=== PATIENT | male | born 1990 | race Caucasian/White ===

== ENCOUNTER 2024-10-14 12:47 | Emergency (ER) | payer SELFPAY ==
[2024-10-14 12:50] VITALS: BP 157/92; PULSE 75; RESP 16; TEMP 36.6; O2SAT 99
--- NOTE | 2024-10-14 13:11 | ED_ITS ---
HPI - Abdominal Pain 2 General: Chief Complaint: Abdominal Pain Stated Complaint: vomitting Time Seen by Provider: 10/14/24 12:59 Source: patient Mode of arrival: ambulatory Limitations: no limitations History of Present Illness: Patient is a 34-year-old male presents to ED today for concerns of diffuse abdominal pain, nausea and vomiting. He states symptoms started Saturday evening. He did eat [employer] before he went to bed but states he had steak-well done. He states since then he has continued to have severe diffuse abdominal pain that he describes as a knot in the middle of his abdomen. He has not noticed any changes in bowel movements but does not think he has had one since Saturday. He does report multiple episodes of vomiting. States he is not able to eat secondary to symptoms. He has not been running fevers. Has not noticed any yellowing to his skin or eyes. He does reported decreased urine output and dark urine and states sometimes it does burn. No penile discharge or concern for STDs. He is monogamous with his of 12 years. Patient does use marijuana frequently-only at night to help him sleep but has been doing so for years. MD elicited complaint: abdominal pain Pertinent past history: none Onset (ago): day(s) Pain Consistency: constant Location: Diffuse Severity: severe Quality: cramping and sharp Radiation: none Migration to: no migration Exacerbating factors: eating Relieving factors: nothing Associated Symptoms: Reports chills, GI cramping, dysuria, nausea and vomiting; Denies constipation, diarrhea, fever(s), hematochezia, hematuria, hematemesis, melena and syncope Related Data Home Medications ?Medication ?Instructions ?Recorded ?Confirmed ibuprofen 200 mg tablet (Advil) 800 mg PO Q6H PRN Feve r Or Pain 10/14/24 10/14/24 Previous Rx's ?Medication ?Instructions ?Recorded ciprofloxacin HCl 500 mg tablet 500 mg PO Q12H #14 tab s 10/14/24 (Cipro) metronidazole 500 mg tablet 500 mg PO BID 7 days #14 t abs 10/14/24 ondansetron 4 mg disintegrating 4 mg PO Q8H PRN nausea and 10/14/24 tablet vomiting #14 tabs prednisone 10 mg tablet 10 mg PO DAILY 7 days #27 ta bs 10/14/24 Allergies Allergy/AdvReac Type Severity Reaction Status Date / Time No Known Allergies Allergy Unverified 06/23/24 07:23 Review of Systems 2 Const: Reports: chills; Denies: fever(s), body aches, fatigue or malaise ENMT: Denies: throat pain or odynophagia Card: Denies: chest pain, edema, lightheadedness, syncope or pre-syncope Resp: Denies: dyspnea, pain on inspiration or chest congestion GI: Reports: abdominal pain, nausea, vomiting and GI cramping; Denies: hematemesis, diarrhea, constipation, hematochezia or melena : Reports: dysuria, urinary frequency and other (decreased urine output); Denies: flank pain, difficulty urinating, urinary urgency, urinary hesitancy or hematuria Musc: Denies: neck pain, back pain, extremity pain, extremity swelling, joint pain, joint swelling or joint redness Skin/Breast: Denies: rash Neuro: Denies: headache(s), numbness in extremities, weakness in extremities, sensory changes, difficulty walking or confusion PFSH ED 2 PFSH: Social History Smoking and tobacco/nicotine status: never used tobacco/nicotine Physical Exam 2 Const: COMMON NORMALS: no acute distress, average body habitus, patient oriented x3, no limitations, healthy appearing, alert and well nourished G ENERAL APPEARANCE: cooperative ORIENTATION/CONSCIOUSNESS: Yes awake, Yes oriented to person, Yes oriented to place and Yes oriented to time HENMT: COMMON NORMALS: normocephalic and atraumatic HEAD & SCALP: normal to inspection, normocephalic and atraumatic FACE & SINUS: normal facial exam Eye: COMMON NORMALS: no scleral icterus Neck/C-Spine: COMMON NORMALS: full ROM, no lymphadenopathy, supple and no meningeal signs Chest: COMMONS NORMALS: normal inspection of the chest Resp: COMMON NORMALS: normal respiratory effort and clear to auscultation bilaterally AUSCULTATION: clear to auscultation bilaterally Cardio: COMMON NORMALS: regular rate and regular rhythm RATE: regular rate RHYTHM: regular rhythm GI: COMMON NORMALS: Normal to inspection, nondistended, normoactive bowel sounds present, Soft to palpation, No hepatosplenomegaly present and no masses INSPECTION: Yes normal to inspection AUSCULTATION: Yes normoactive bowel sounds PALPATION: Yes Soft to palpation, Yes Tenderness to palpation present (GI) (diffusely), Yes Guarding due to palpation present (GI), No Rigid due to palpation and Yes No hepatosplenomegaly present : COMMON NORMALS: Yes no CVA tenderness BLADDER/KIDNEY EXAM: Yes no CVA tenderness Back/Pelvis: COMMON NORMALS: no CVA tenderness and thoracic and lumbar spine normal to inspection Extremity: COMMON NORMALS: normal to inspection GENERAL: Yes normal exam except as noted Neuro: ANASTACIA COMA SCALE: document GCS findings [place] coma scale eye opening: Spontaneous [place] coma scale verbal response: Orientated Anastacia coma scale motor response: Obey commands Anastacia coma scale total score: 15 COMMON NORMALS: patient oriented x3, moves all extremities, no focal motor deficits, no sensory deficits noted and gait normal SENSORIUM/ORIENTATION: Yes alert, Yes oriented to person, Yes oriented to place and Yes oriented to time MENINGEAL SIGNS: Yes no meningeal signs Skin: COMMON NORMALS: no rashes or lesions noted GENERAL SKIN EXAM: no rashes or lesions noted Course 2 Vital Signs: Vital signs: Vital Signs Temperature 97.9 F 10/14/24 12:50 Pulse Rate 65 10/14/24 14:23 Respiratory Rate 16 10/14/24 12:50 Blood Pressure 157/92 10/14/24 12:50 Pulse Oximetry 94 10/14/24 14:23 Oxygen Delivery Me thod Room Air 10/14/24 14:23 MDM - Abdominal Pain Medical Decision Making Patient's pain and nausea are improved after medications. His blood work overall is nonactionable. Mild white count of 14.2. Chemistry is overall unremarkable. UA is clear. CT scan showing findings suspicious for a right colon/transverse colon infectious or inflammatory colitis. Remainder of CT scan is unremarkable. Patient will be treated with anti-inflammatory/antibiotics and recommend follow-up with primary care early next week for re-evaluation. Return ED precautions discussed. Another etiology for his symptoms could be his habitual marijuana use. Differential Diagnosis Likely abdominal pain Medical Records I reviewed the patient's medical records. Lab Data I reviewed the patient's lab results. 10/14/24 13:16 10/14/24 13:16 Labs/Radiology: Radiology Impressions Abdomen/Pelvis CT 10/14/24 13:18 IMPRESSION: 1. Findings suspicious for RIGHT colon and transverse colon infectious or inflammatory colitis described above. Less prominent involvement of the descending colon and sigmoid colon. 2. Normal appendix. 3. Fatty liver. 4. Evidence of gastritis and duodenitis. 5. No other acute findings. Laboratory Results WBC 14.20 10^3/uL (3.29-11.43) H 10/14/24 13:16 RBC 5.43 10^6/uL (3.85-5.65) 10/14/24 13:16 Hgb 16.30 g/dL (11.27-16.99) 10/14/24 13:16 Hct 47.1 % (37-53) 10/14/24 13:16 MCV 86.7 fl (82-101) 10/14/24 13:16 MCH 30.0 pg (27-33) 10/14/24 13:16 MCHC 34.6 g/dL (30-55) 10/14/24 13:16 RDW 12.1 % (12.1-15.1) 10/14/24 13:16 Plt Count 263 10^3/cmm (157-399) 10/14/24 13:16 MPV 12.4 fL (7.4-10.4) H 10/14/24 13:16 Neut % (Auto) 80.5 % 10/14/24 13:16 Lymph % (Auto) 14.2 % 10/14/24 13:16 Rolette % (Auto) 4.6 % 10/14/24 13:16 Eos % (Auto) 0.1 % 10/14/24 13:16 Baso % (Auto) 0.1 % 10/14/24 13:16 Neut # (Auto) 11.43 10^3/uL (1.8-7.7) H 10/14/24 13:16 Lymph # (Auto) 2.0 10^3/uL (0.8-4.8) 10/14/24 13:16 Rolette # (Auto) 0.7 10^3/uL (0.2-0.9) 10/14/24 13:16 Eos # (Auto) 0.0 10^3/uL (0.0-0.8) 10/14/24 13:16 Baso # (Auto) 0.0 10^3/uL (0.0-0.1) 10/14/24 13:16 Nucleated RBC % (auto) 0 % 10/14/24 13:16 Nucleated RBCs # 0.0 /100WBC 10/14/24 13:16 Sodium 137 mmol/L (136-145) 10/14/24 13:16 Potassium 3.5 mmol/L (3.5-5.1) 10/14/24 13:16 Chloride 99 mmol/L (98-107) 10/14/24 13:16 Carbon Dioxide 23 mmol/L (22-29) 10/14/24 13:16 Anion Gap 18.5 (5-19) 10/14/24 13:16 BUN 12 mg/dL (6-20) 10/14/24 13:16 Creatinine 1.0 mg/dL (0.7-1.2) 10/14/24 13:16 GFR Calculation 85.5 mL/min (90-130) L 10/14/24 13:16 Glucose 104 mg/dL (65-115) 10/14/24 13:16 Calculated Osmolality 284 mOsm/kg (285-295) L 10/14/24 13:16 Calcium 9.5 mg/dL (8.5-10.5) 10/14/24 13:16 Total Bilirubin 0.8 mg/dL (0.15-1.2) 10/14/24 13:16 AST 19 U/L (0-40) 10/14/24 13:16 ALT 14 U/L (0-41) 10/14/24 13:16 Alkaline Phosphatase 87 U/L (40-130) 10/14/24 13:16 Creatine Kinase 107 U/L (39-308) 10/14/24 13:16 Total Protein 8.4 g/dL (6.6-8.7) 10/14/24 13:16 Albumin 4.8 g/dL (3.5-5.2) 10/14/24 13:16 Globulin 3.6 g/dL (1.3-4.6) 10/14/24 13:16 Lipase 54 U/L (13-60) 10/14/24 13:16 Urine Color Yellow (Yellow) 10/14/24 15:52 Urine Appearance Clear (CLEAR) 10/14/24 15:52 Urine pH 7.5 (5-7) 10/14/24 15:52 Ur Specific Reyn[place] 1.061 (1.005-1.030) H 10/14/24 15:52 Urine Protein Negative (Negative) 10/14/24 15:52 Urine Glucose (UA) Negative (Normal) 10/14/24 15:52 Urine Ketones Trace (Negative) 10/14/24 15:52 Urine Blood Non-haemolysed trace (Negative) 10/14/24 15:52 Urine Nitrate Negative (Negative) 10/14/24 15:52 Urine Bilirubin Negative (Negative) 10/14/24 15:52 Urine Urobilinogen 0.2 mg/dL (Negative) 10/14/24 15:52 Ur Leukocyte Esterase Negative (Negative) 10/14/24 15:52 Urine RBC 0-2 /hpf (0-2) 10/14/24 15:52 Urine WBC 0-5 /hpf (0-5) 10/14/24 15:52 Ur Squamous Epith Cells 0-5 /hpf (0-5) 10/14/24 15:52 Amorphous Sediment Not Reportable 10/14/24 15:52 Urine Bacteria None seen /hpf (NONE) 10/14/24 15:52 Hyaline Casts 0-4 /lpf H 10/14/24 15:52 All radiology interpretation(s) finalized by discharge Discharge Plan Discharge Patient Disposition: Home Clinical Impression: Colitis Condition: Stable Prescriptions: New prednisone 10 mg tablet 10 mg PO DAILY 7 Days Qty: 27 0RF Rx Instructions: 6 tabs on days 1-2, 5 tabs on days 3, 4 tabs on day 4, 3 tabs on day 5, 2 tabs on day 6, 1 tab on day 7 metronidazole 500 mg tablet 500 mg PO BID 7 Days Qty: 14 0RF ciprofloxacin HCl [Cipro] 500 mg tablet 500 mg PO Q12H Qty: 14 0RF ondansetron 4 mg tablet,disintegrating 4 mg PO Q8H PRN (Reason: nausea and vomiting) Qty: 14 0RF No Action ibuprofen [Advil] 200 mg Tablet 800 mg PO Q6H PRN (Reason: Fever Or Pain) Discharge Orders: Discharge ED (Routine); Ordered 10/14/24 Ordered By: Luly Lozano Referrals: Eric Ventura MD [Primary Care Provider, Family Practice] Patient Instructions: Colitis (ED) Activity Restrictions/Additional Instructions: As we discussed, I would like you to do a bland liquid diet over the next 48 hours and slowly advance as tolerated. Take your medications as directed. I would like you to follow-up with primary care early next week for reevaluation. You need to return to the emergency department for onset of worsening abdominal pain, fevers, continuing to vomit, bloody diarrhea, generally feeling worse or unwell, or any other concerns you may have. I hope you begin to feel better soon. Print Language: Burkinan Coding Level of Care Code ED [employer] for Yoandy العلي
--- NOTE | 2024-10-14 13:18 | CT_ITS ---
WS: [id number] CT ABDOMEN PELVIS TECHNIQUE: Contrast-enhanced CT of the abdomen and pelvis with coronal and sagittal reformatted images. CLINICAL INFORMATION: abdominal pain, N/V COMPARISON: None. DLP: 448.[address] scans at [facility] use at least one of these dose optimization techniques: automated exposure control; mA and/or kV adjustment per patient size (includes targeted exams where dose is matched to clinical indication); or iterative reconstruction. FINDINGS: Mild diffuse thickening with mucosal enhancement involving the colon more prominent in the RIGHT colon and transverse colon suspicious for infectious or inflammatory colitis. Less prominent involvement of the descending colon. Sigmoid colon is more normal appearance. No evidence of small or large bowel obstruction. Normal appendix in the RIGHT lower quadrant. Lung bases are well aerated. Fatty liver. Normal portal vein and splenic vein. Evidence of gastritis and duodenitis. Adrenal glands are normal. Normal renal parenchymal enhancement. No hydronephrosis. Normal pancreatic parenchymal enhancement. Normal caliber abdominal aorta. Tiny fat-containing umbilical hernia. CT/CT abdomen pelvis w con* [id number] IMPRESSION: 1. Findings suspicious for RIGHT colon and transverse colon infectious or infl ammatory colitis described above. Less prominent involvement of the descending colon and sigmoid colon. 2. Normal appendix. 3. Fatty liver. 4. Evidence of gastritis and duodenitis. 5. No other acute findings.
[2024-10-14] MEDS: morphine 4 mg/mL SDV 1 mL IVP (13:32)
[2024-10-14] MEDS: ondansetron 2 mg/ML SDV 2 mL 4 MG IVP (13:33)
[2024-10-14] MEDS: sodium chloride 0.9% 1,000 ML 999 ML IV (13:33)
[2024-10-14 13:42] LABS: Basophils % 0.1 %; Eosinophils % 0.1 %; Hematocrit 47.1 % (37-53); Lymphocytes % 14.2 %; Mean Corpuscular HGB Conc 34.6 g/dL (30-55); Mean Corpuscular Volume 86.7 fl (82-101); Mean Platelet Volume 12.4 fL (7.4-10.4); Monocytes # 0.7 10^3/uL (0.2-0.9); Monocytes % 4.6 %; Neutrophils # 11.43 10^3/uL (1.8-7.7); Neutrophils % 80.5 %; Nucleated Red Blood Cells % 0 %; Platelet Count 263 10^3/cmm (157-399); Red Blood Count 5.43 10^6/uL (3.85-5.65); Red Cell Distribution Width 12.1 % (12.1-15.1)
--- NOTE | 2024-10-14 13:44 | ECG_ITS ---
[facility] [place] [facility] Date: 2024-10-14 Pat Name: Demario Curtis Department: Room: Gender: Male Slurry Man: : 1990 Requested By: Luly Lozano Order Number: [id number] Kait MD: MAGALYS PILLAI Measurements Intervals [place] Rate: 47 P: 56 IA: 155 QRS: 95 QRSD: 106 T: 67 QT: 426 QTc: 378 Interpretive Statements SINUS BRADYCARDIA BORDERLINE RIGHT AXIS DEVIATION [QRS AXIS > 90] Compared to ECG 03/14/2016 22:17:11 Sinus rhythm no longer present Early repolarization no longer present Electronically Signed On 10-14-2024 23:08:58 CDT by MAGALYS PILLAI [email or web address]
[2024-10-14 14:03] LABS: Alanine Aminotransferase 14 U/L (0-41); Albumin Level 4.8 g/dL (3.5-5.2); Alkaline Phosphatase 87 U/L (40-130); Anion Gap 18.5 (5-19); Aspartate Amino Transferase 19 U/L (0-40); Blood Urea Nitrogen 12 mg/dL (6-20); Calcium 9.5 mg/dL (8.5-10.5); Carbon Dioxide 23 mmol/L (22-29); Chloride 99 mmol/L (98-107); Creatine Phosphokinase 107 U/L (39-308); Creatinine Clr Calc Pharmacy 119.3554; Globulin 3.6 g/dL (1.3-4.6); Glomerular Filtration Rate 85.5 mL/min (90-130); Glucose 104 mg/dL (65-115); Lipase 54 U/L (13-60); Osmolality Calculated 284 mOsm/kg (285-295); Potassium 3.5 mmol/L (3.5-5.1); Sodium 137 mmol/L (136-145); Total Bilirubin 0.8 mg/dL (0.15-1.2); Total Protein 8.4 g/dL (6.6-8.7)
[2024-10-14] MEDS: iohexol 350 mg/mL 500 mL Btl (per mL) IV (14:08)
[2024-10-14 14:23] VITALS: PULSE 65; O2SAT 94
[2024-10-14] MEDS: sodium chloride 0.9% 500 ML 999 ML IV (16:00)
[2024-10-14 16:06] LABS: Bilirubin Urine Negative (Negative); Blood Urine Non-haemolysed trace (Negative); Glucose Urine UA Negative (Normal); Ketones Urine Trace (Negative); Leukocyte Esterase Urine Negative (Negative); Nitrate Urine Negative (Negative); Protein Urine Negative (Negative); Urine Appearance Clear (CLEAR); Urine Color Yellow (Yellow); Urobilinogen Urine 0.2 mg/dL (Negative); pH Urine 7.5 (5-7)
[2024-10-14 16:10] LABS: Add Urine Microscopic? YES; Bacteria Urine None Seen /hpf; Hyaline Casts Urine 0-4 /lpf; RBC Urine 0-2 /hpf (0-2); Squamous Epithelial Cell Urine 0-5 /hpf (0-5); WBC Urine 0-5 /hpf (0-5)
[2024-10-14 16:21] LABS: Specific Gravity, Urine 1.061 (1.005-1.030)
[2024-10-14 16:22] LABS: Add Urine Culture? No
[2024-10-14 16:55] VITALS: BP 137/78; PULSE 81; O2SAT 94
== END 2024-10-14 16:56 | disposition home or self-care (01) ==
PROVIDERS: Emergency Provider Physician Assistant; PCP Family Medicine
DX: K52.9 Noninfective gastroenteritis and colitis, unspecified (principal)
CPT/HCPCS: 74177; 80053; 81001; 82550; 83690; 85025; 93005; 96374; 96375; 99285; J2270; J2405; J7030; J7040